=== PATIENT | male | born 1945 | race Hispanic/Latino ===

== ENCOUNTER 2017-03-19 13:46 | Outpatient (CLI) | payer OTHER, MEDICARE ==
[2017-03-19] MEDS ORDERED: NACL ONE (14:43)
[2017-03-19 14:45] LABS: Blood Urea Nitrogen 11 mg/dL (9-20)
--- NOTE | 2017-03-20 09:25 | Cat Scan Report ---
CTA abdomen, pelvis, lower extremities: Prior bypass surgery with claudication. Transverse images are obtained from the lower chest to the feet with coronal and sagittal 2-D reformatted images. Images of the lung bases are unremarkable. The spleen is end homogeneous with several areas of irregular marginated decreased attenuation. There is a 6 cm cyst in the superior right kidney and a 2 cm cyst in the inferior left kidney. Diffuse diverticulosis is noted in the distal colon. The supra-renal abdominal aorta is unremarkable. 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 Approximately 5 cm below the renal arteries bilateral patent bypass grafts exit from the abdominal aorta inserting at the common femoral arteries. 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 Right lower extremity: There is occlusion of the proximal SFA reconstituting a severely compromised atherosclerotic SFA in the mid thigh. The popliteal artery is obscured by a knee replacement. The common peroneal artery is patent as is the trifurcation. There is three-vessel runoff to the foot. Left lower extremity: The SFA is patent but involved with moderate atherosclerosis in the mid and distal portions. The popliteal and common peroneal arteries are patent as is the trifurcation. There is three-vessel runoff to the foot. Impressions: 1. Patent bilateral aortobifemoral grafts. Left insertion aneurysm. 2. Occluded proximal right SFA reconstituting a compromised SFA in the mid thigh. The popliteal artery is obscured by the knee replacement. 3. Bilateral three-vessel runoff to the feet. 4. 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
== END 2017-03-19 13:47 | disposition home or self-care (01) ==
LOC: CT 13:46 → EDBD 14:45
PROVIDERS: ATTEND Radiology Diagnostic Radiology
DX: I70.213 Atherosclerosis of native arteries of extremities with intermittent claudication, bilateral legs (principal); N28.1 Cyst of kidney, acquired; K57.30 Diverticulosis of large intestine without perforation or abscess without bleeding; Z95.828 Presence of other vascular implants and grafts
CPT/HCPCS: 36415; 75635; 82565; 84520; Q9967